=== PATIENT | male | born 1995 | race Two or more races ===

== ENCOUNTER 2025-06-21 23:38 | Emergency (ER) | payer BC, SELFPAY ==
[2025-06-21 23:40] VITALS: BMI 29.0
[2025-06-21 23:42] VITALS: BP 161/88; PULSE 75; RESP 16; TEMP 37; O2SAT 97
--- NOTE | 2025-06-22 00:36 | XR_ITS ---
Examination: Abdomen sonogram, Limited Date and time of exam: June 22, 2025, 0123 hours INDICATIONS: Right upper abdominal pain beginning 1 week ago Technique: Real-time silva scale transabdominal sonographic images of the upper abdomen obtained. Findings: Normal gallbladder Normal common bile duct 0.2 cm Pancreas obscured by bowel gas Liver 15.4 cm no liver lesions Normal hepatopetal portal venous flow Patent IVC IMPRESSION: Normal gallbladder
--- NOTE | 2025-06-22 00:36 | PD.EDRME ---
Rapid Medical Screening Exam RME Arrival date/time: 06/21/25 23:38 This is a case of 29-year-old male with no medical history came in in the emergency room due to right upper quadrant abdominal pain with nausea and vomiting assistance of the symptoms that patient decided to start consult her in the emergency room Chief Complaint: Abdominal Pain Time Seen by Provider: 06/21/25 23:46 Vital signs: Vital Signs Temperature 98.6 F 06/21/25 23:42 Pulse Rate 75 06/21/25 23:42 Respiratory Rate 16 06/21/25 23:42 Blood Pressure 161/88 H 06/21/25 23:42 Pulse Oximetry (%) 97 06/21/25 23:42 Oxygen Delivery Method Room Air 06/21/25 23:42 Exam: Moderate tenderness on the right upper quadrant no guarding no rebound no rigidity Clinical Impression: Abdominal pain
[2025-06-22 01:15] LABS: Collection Type, Urine Clean Catch
[2025-06-22 01:19] LABS: Basophils # (Auto) 0.1 Thou/mm3 (0.0-0.2); Basophils % (Auto) 1 % (0-2.5); Eosinophils # (Auto) 0.0 Thou/mm3 (0.0-0.5); Eosinophils % (Auto) 0 % (0-10); Hematocrit 44.0 % (41.0-53.0); Hemoglobin 14.4 g/dL (13.5-16.0); Immature Granulocytes Auto 0.02 Thou/mm3 (0.00-0.00); Lymphocytes # (Auto) 2.0 Thou/mm3 (1.0-4.8); Lymphocytes % (Auto) 22 % (10-50); Mean Corpuscular HGB Conc 32.7 g/dl (31.0-37.0); Mean Corpuscular Hemoglobin 29.1 pg (25.0-35.0); Mean Corpuscular Volume 89 fL (80-100); Monocytes # (Auto) 0.8 Thou/mm3 (0.0-0.8); Monocytes % (Auto) 9 % (0-12); Neutrophils # (Auto) 6.1 Thou/mm3 (1.8-7.7); Neutrophils % (Auto) 68 % (37-80); Nucleated Red Blood Cell # 0.00 Thou/mm3 (0.00-0.00); Nucleated Red Blood Cell % 0 /100 WBC (0); Platelet Count 232 Thou/mm3 (140-440); RDW Standard Deviation 38.9 fL (35.1-43.9); Red Blood Count 4.94 Miln/mm3 (4.50-5.90); White Blood Count 9.0 Thou/mm3 (3.8-10.6)
[2025-06-22 01:34] LABS: Bilirubin,Urine Negative (Negative); Blood,Urine Negative (Negative); Clarity,Urine Clear (Clear/Hazy); Color,Urine Lt-Yellow (Lt Yel-Yel); Glucose, Urine Negative (Negative); Ketones,Urine Negative (Negative); Leukocyte Esterase,Urine Negative (Negative); Nitrite,Urine Negative (Negative); PH,Urine 7.5 (5.0-7.0); Protein,Urine Negative (Neg - Trace); RBC,Urine 3 /hpf (0-3); Specific Gravity,Urine 1.018 (1.001-1.035); Squamous Epithelial Cell,Urine 1 /hpf (0-5); Urobilinogen,Urine Negative mg/dL (0.0-1.0); WBC,Urine < 1 /hpf (0-5)
[2025-06-22 01:41] LABS: Alanine Aminotransferase 26 U/L (10-49); Albumin, Serum 4.7 gm/dL (3.5-5.0); Albumin/Globulin Ratio 1.6 (1.2-2.2); Alkaline Phosphatase 108 U/L (46-116); Anion Gap 12 (7-16); Aspartate Amino Transferase 20 U/L (0-34); BUN/Creatinine Ratio 8 Ratio (12-20); Bilirubin,Total 0.8 mg/dL (0.3-1.2); Blood Urea Nitrogen 8 mg/dL (9-23); Calcium 9.7 mg/dL (8.3-10.6); Calcium (Corrected) 9.7 mg/dL (8.5-10.1); Carbon Dioxide 27.1 mMol/L (20.0-31.0); Chloride 104 mMol/L (98-107); Creatinine (Component) 1.0 mg/dL (0.6-1.3); Estimated Creatinine Clearance 109.4 mL/min (>60); Globulin 2.9 gm/dL (2.3-3.5); Glucose 118 mg/dL (74-106); Lipase 30 U/L (12-53); Osmolality,Calculated 284 (275-295); Potassium 3.9 mMol/L (3.4-5.1); Sodium 143 mMol/L (136-145); Total Protein 7.6 gm/dL (5.7-8.2); eGFR > 60 See Note
--- NOTE | 2025-06-22 03:14 | PRELIM_ITS ---
Gallbladder ultrasound. June 22, 2025 at 0123 hours Clinical history: Abdominal pain. Comparison: No prior study is available for comparison. Findings: Gallbladder wall is 1 mm thick. No cholelithiasis or gallbladder sludge. Common bile duct is 2 mm in diameter. No choledocholithiasis. Pancreas is obscured by bowel gas. Liver is 15.4 cm long. No focal hepatic lesion. Main portal vein is antegrade. Inferior vena cava is patent. Impression: Normal exam. Report Electronically Signed By: Jose Nguyen 06/22/2025 3:13:38 AM [EST]
--- NOTE | 2025-06-22 03:47 | PD.EDABDPN ---
ED Abdominal Pain RME/HPI General Chief Complaint: Abdominal Pain Stated complaint: ABD PAIN Time seen by provider: 06/21/25 23:46 Arrival date/time: 06/21/25 23:38 This is a case of 29-year-old male with no medical history came into the emergency room due to epigastric and right upper quadrant abdominal pain for 10 days on and off burning in character associated with nausea vomiting no diarrhea no constipation no blood in stool no chest pain persistence of the symptoms this patient decided to sought consult here in the emergency room Limitations: no limitations RME / HPI RME / HPI narrative: 06/21/25 23:38 This is a case of 29-year-old male with no medical history came in in the emergency room due to right upper quadrant abdominal pain with nausea and vomiting assistance of the symptoms that patient decided to start consult her in the emergency room Exam: Moderate tenderness on the right upper quadrant no guarding no rebound no rigidity Impression: Abdominal pain Related Data Previous Rx's ?Medication ?Instructions ?Recorded famotidine 20 mg tablet (Pepcid) 20 mg PO BID 30 days #60 tabs 06/22/25 ondansetron 4 mg disintegrating 4 mg PO Q8H #20 tabs 06/22/25 tablet Allergies Allergy/AdvReac Type Severity Reaction Status Date / Time No Known Allergies Allergy Verified 06/21/25 23:39 Review of Systems Review of Systems Systems Reviewed: All systems reviewed, normal except as documented Past Medical History Social History SMOKING STATUS: Never smoker ED Exam General Limitations: Present no limitations General appearance: Present alert, in no apparent distress and other (Patient is awake alert oriented not in distress nontoxic looking well-hydrated well nourished) Head Head exam: Present atraumatic, normocephalic and normal inspection Eye Eye exam: Present normal appearance, PERRL and EOMI ENT ENT exam: Present normal exam, normal oropharynx and mucous membranes moist Neck Neck exam: Present normal inspection, full ROM and trachea midline; Absent tenderness, meningismus, lymphadenopathy or thyromegaly Chest Chest inspection: Present normal inspection and symmetric chest wall rise; Absent tenderness Respiratory Respiratory exam: Present normal lung sounds bilaterally; Absent respiratory distress, wheezes, stridor, accessory muscle use or prolonged expiratory phase Cardiovascular Cardiovascular exam: Present regular rate, normal rhythm and normal heart sounds; Absent bradycardia, tachycardia, irregular rhythm, systolic murmur or diastolic murmur Abdominal Exam Abdominal exam: Present soft, tenderness (Mild tenderness right upper quadrant and epigastric area no CVA tenderness bladder is nondistended nontender) and normal bowel sounds; Absent distention, guarding, rebound, rigidity, diminished bowel sounds, hyperactive bowel sounds, hypoactive bowel sounds, organomegaly, psoas sign, obturator sign, Alvarez's sign, Rovsing's sign or tenderness at McBurney's Point Extremities Exam Extremities exam: Present normal inspection and full ROM Back Exam Back exam: Present normal inspection and full ROM Neurological Exam Neurological exam: Present alert, oriented X3, CN II-XII intact, normal gait and reflexes normal; Absent motor sensory deficit Psychiatric Psychiatric exam: Present normal affect and normal mood Skin Skin exam: Present warm, dry, intact and normal color Course Quality Measures none Orders Category Date Time Status US gall bladder Stat Exams 06/22/25 00:36 Taken CBC Stat Lab 06/22/25 00:54 Completed Comprehensive Metabolic Panel Stat Lab 06/22/25 00:54 Completed Lipase Stat Lab 06/22/25 00:54 Completed Urinalysis Stat Lab 06/22/25 01:02 Completed Vital Signs Vital signs: Vital Signs Temperature 98.6 F 06/21/25 23:42 Pulse Rate 75 06/21/25 23:42 Respiratory Rate 16 06/21/25 23:42 Blood Pressure 161/88 H 06/21/25 23:42 Pulse Oximetry (%) 97 06/21/25 23:42 Oxygen Delivery Method Room Air 06/21/25 23:42 Oxygen saturation is 97% in room air BP initially was 161/80 8 repeat the BP after 1 hour and noted to be 145/90 Abdominal Pain MDM MDM Narrative MDM Narrative:: This is a case of 29-year-old male with no medical history came into the emergency room due to epigastric and right upper quadrant abdominal pain for 10 days on and off burning in character associated with nausea vomiting no diarrhea no constipation no blood in stool no chest pain persistence of the symptoms this patient decided to sought consult here in the emergency room physical examination patient is awake alert oriented not in distress nontoxic looking well-hydrated well-nourished vital signs stable abdominal exam is benign nonsurgical no guarding no rebound no rigidity mild tenderness in the epigastric area and right upper quadrant no guarding no rebound no rigidity no CVA tenderness negative psoas negative straight or negative Rovsing's negative McBurney's negative Alvarez sign negative CVA tenderness excellent skin turgor blood test showed no leukocytosis no anemia kidney liver function is normal no electrolyte imbalance lipase is normal urinalysis is normal ultrasound of the gallbladder is also normal based on the physical examination and history patient have gastritis patient was discharged with Pepcid and Zofran patient will follow-up with PCP to be referred to regulatory coordinator for gastritis modified diet advised worsening symptoms go to the emergency room or call [phone] Patient was discharged with comfortable condition walking with stable gait. Patient verbalized no further complains explained diagnosis and answered patient question. Patient is comfortable with the proposed management plan including the need to follow up with his/her primary care physician and any specialist if applicable Discussed patient for any urgent condition or worsening sx, He/She needed to go to emergency room immediately or call 911. Patient acknowledge the responsibility to follow up as instructed and to monitor her/his symptoms. For any persistence of the symptoms for more than 3-5 days return precaution advised. Discussed the result of the test and was given printed discharge instruction Patient data External records reviewed:: [facility] previous records Clinical information provided by:: patient Social determinants that could affect healthcare access:: none Patient has the following chronic illnesses:: None How is presenting disease/condition affected by chronic disease/condition?: no chronic disease Evaluation data The following diagnostics were reviewed and interpreted by me:: lab results and radiology exam(s) Lab and/or radiology exams considered but not ordered:: Reviewed Interpretation Summary: Reviewed Medications / Prescriptions Medications or Prescriptions considered but not ordered:: Given Medication administrations:: Give Consultations Consultation(s) initiated? (list below): No Diagnosis Differential diagnosis abdominal pain: abdominal pain, acute appendicitis, calculus of kidney, constipation, diverticulitis, endometriosis, gastroenteritis, pancreatitis, small bowel obstruction and other (Gastritis cholelithiasis) Most likely diagnosis given after review of the tests above:: Gastritis Admission Indicated Admission indicated?: not indicated Explain why admission is indicated or not indicated:: Not indicated Admission Request Was there a request for admission?: No Admission Attestation Admission request attestation: Not indicated Disposition Plan Disposition Plan: Discharge Discharge Attestation Discharge Attestation: The patient and all family members were given an opportunity to ask questions and understood the discharge instructions. Discharge instructions specifically effects, indications for sooner follow up or return to the emergency department, and the expected course of current diagnosis. Patient condition: Stable Discharge Plan Plan Patient Disposition: HOME (Self Care) Patient condition on transfer: Stable Prescriptions/Referrals Prescriptions/Med Rec: New famotidine [Pepcid] 20 mg tablet 20 mg PO BID 30 Days Qty: 60 0RF ondansetron 4 mg tablet,disintegrating 4 mg PO Q8H Qty: 20 0RF Referrals: No Primary/Family,Physician [Primary Care Provider] - In 1 week Problem List Clinical Impression: Abdominal pain, Gastritis Patient/Caregiver Discharge Instructions Education Materials: Abdominal Pain, ED Gastritis (Adult) Additional Instructions: Follow-up with your primary care physician in 2 days for reevaluation and to be referred to regulatory coordinator for further evaluation and treatment of gastritis for possible EGD worsening symptoms or any emergent concern call 911 or go to the nearest emergency room take your medication as directed increase water intake keep hydrated Pedialyte Gatorade for hydration avoid skipping of meals avoid fatty fried high cholesterol dairy food avoid skipping of meals avoid spicy food avoid soda coffee alcohol Print Language: [place] Stand Alone Forms: Lory Award Info., Patient Portal Info Letter PA/PANEL MAKER Supervising Physician PA/PANEL MAKER Supervising Physician: Dr. Chavez
[2025-06-22 03:52] VITALS: RESP 18
== END 2025-06-22 03:54 | disposition home or self-care (01) ==
PROVIDERS: Nurse Practitioner Family; Emergency Provider Emergency Medicine
DX: K29.70 Gastritis, unspecified, without bleeding (principal); R10.11 Right upper quadrant pain
CPT/HCPCS: 36415; 76705; 80053; 81001; 83690; 85025; 99283